=== PATIENT | male | born 1935 | race Caucasian/White ===

== ENCOUNTER → 2017-12-13 | Outpatient (CLI) | payer OTHER ==
[~2017-12-13] MED LIST: ALLOPURINOL300 MG PO; ARMOUR THYROID30 MG PO; BAYER CHEWABLE81 MG PO; BENICAR20 MG PO; BENICAR40 MG PO; BUPROPION XL300 MG PO; CEPHALEXIN500 MG PO; CIPRO500 MG PO; COLCRYS0.6 MG PO; COLON CLEAR PO; DHEA25 MG PO; DOCUSATE SODIU100 MG PO; DONEPEZIL HCL5 MG PO; FLOMAX0.4 MG PO; GOLDENSEAL325 MG PO; LACTULOSE10 GM/151 PO; LEVOFLOXACIN500 MG PO; LEVOFLOXACIN750 MG PO; LIOTHYRONINE S25 MCG PO; MAGNESIUM27 MG PO; MOTRIN600 MG PO; NAMENDA XR7 MG PO; NITROGLYCERIN0.4 MG SL; OIL OF OREGAN1500 MG PO; OXYCODONE HCL5 MG PO; PREVAGEN D PO; SELENIUM100 MICROG PO; SKELAXIN800 MG PO; SPIRONOLACTONE50 MG PO; SYNTHROID88 MCG PO; TAMSULOSIN HCL0.4 MG PO; VICODIN 5-3001 EACH PO; VITAMIN B125000 MCG PO; VITAMIN C1000 MG PO; VITAMIN D35000 UNIT PO; VITAMIN D5000 INTUN PO; XIFAXAN550 MG PO; ZOFRAN4 MG PO; [UNRECOGNIZED DRUG - OTHER]; [UNRECOGNIZED DRUG - OTHER]; [UNRECOGNIZED DRUG - OTHER]; [UNRECOGNIZED DRUG - OTHER]; [UNRECOGNIZED DRUG - OTHER] PO; [UNRECOGNIZED DRUG - OTHER] PO; [UNRECOGNIZED DRUG - OTHER] PO; [UNRECOGNIZED DRUG - OTHER] PO; [UNRECOGNIZED DRUG - OTHER] PO; [UNRECOGNIZED DRUG - OTHER] PO; [UNRECOGNIZED DRUG - OTHER] PO; [UNRECOGNIZED DRUG - OTHER] PO; [UNRECOGNIZED DRUG - OTHER] PO; [UNRECOGNIZED DRUG - OTHER] PO
== END | disposition home or self-care (01) ==
LOC: PICC 12:50
DX: M86.9 Osteomyelitis, unspecified (principal); Z88.0 Allergy status to penicillin; Z88.1 Allergy status to other antibiotic agents
CPT/HCPCS: 76937